=== PATIENT | female | born 1960 ===

== ENCOUNTER 2021-04-01 11:15 | Inpatient (IN) | payer OTHER ==
[~2021-04-01] VITALS: Ht 162.6 cm; Wt 63.5 kg
[2021-04-01] MEDS ORDERED: TIROSINT100 MCG PO (15:00)
== END 2021-04-11 17:46 | disposition home or self-care (01) | DRG 330 ==
LOC: O/R 04-03 06:54 → SURH 04-03 06:54
PROVIDERS: ADMIT Colon & Rectal Surgery; ATTEND Colon & Rectal Surgery
PROC: 07BB4ZZ Excision of Mesenteric Lymphatic, Percutaneous Endoscopic Approach (ICD-10-PCS; 2021-04-03)
PROC: 0DBU4ZZ Excision of Omentum, Percutaneous Endoscopic Approach (ICD-10-PCS; 2021-04-03)
PROC: 0DTF4ZZ Resection of Right Large Intestine, Percutaneous Endoscopic Approach (ICD-10-PCS; principal; 2021-04-03 07:00)
DX: C18.0 Malignant neoplasm of cecum (principal); K92.1 Melena; R59.0 Localized enlarged lymph nodes; K63.5 Polyp of colon; K38.9 Disease of appendix, unspecified; Z20.822 Contact with and (suspected) exposure to COVID-19; E03.8 Other specified hypothyroidism